=== PATIENT | male | born 1950 | race Caucasian/White ===

== ENCOUNTER 2020-02-07 05:19 | Day surgery (SDC) | payer MEDICARE, OTHER ==
[2020-02-03 11:38] LABS: BASOPHILS % (AUTO) 0.5 % (0-1); EOSINOPHILS # (AUTO) 0.2 X10'3 (0-0.9); EOSINOPHILS % (AUTO) 2.6 % (0-6); LYMPHOCYTES # (AUTO) 1.1 X10'3 (1.1-4.8); LYMPHOCYTES % (AUTO) 12.7 % (21-51); MEAN CORPUSCULAR HEMOGLOBIN 31.4 PG (27.0-31.0); MEAN CORPUSCULAR HGB CONC 35.1 g/dL (33.0-36.5); MEAN CORPUSCULAR VOLUME 89.3 FL (78-98); MEAN PLATELET VOLUME 8.6 FL (7.4-10.4); MONOCYTES # (AUTO) 0.8 X10'3 (0-0.9); MONOCYTES % (AUTO) 9.7 % (2-12); NEUTROPHILS # (AUTO) 6.4 X10'3 (1.8-7.7); NEUTROPHILS % (AUTO) 74.5 % (42-75); PRE OP HEMATOCRIT 42.5 % (42.0-52.0); PRE OP HEMOGLOBIN 14.9 g/dL (14.0-17.9); PRE OP PLATELET COUNT 179 X10'3 (140-440); RED BLOOD COUNT 4.76 X10'6 (4.70-6.10); RED CELL DISTRIBUTION WIDTH 13.7 % (11.5-14.5)
[2020-02-03 11:52] LABS: ALBUMIN 4.1 G/DL (3.4-5.0); ALBUMIN/GLOBULIN RATIO 1.3 (1.1-1.5); ALKALINE PHOSPHATASE 95 IU/L (46-116); BLOOD UREA NITROGEN 20 MG/DL (7-18); BUN/CREATININE RATIO 19.2 (5.4-32.0); CALCIUM 9.3 MG/DL (8.5-10.1); CHLORIDE 104 MMOL/L (99-107); CREATININE 1.04 MG/DL (0.60-1.10); PRE OP ALT 49 U/L (30-65); PRE OP ANION GAP 8 (8-16); PRE OP AST 21 U/L (10-37); PRE OP GLUCOSE 116 MG/DL (70-104); PRE OP POTASSIUM 4.2 MMOL/L (3.4-5.1); PRE OP SODIUM 138 MMOL/L (135-145); TOTAL CARBON DIOXIDE 26.2 MMOL/L (24-32); TOTAL PROTEIN 7.2 G/DL (6.4-8.2); eGFR 70 ML/MIN
[~2020-02-07] VITALS: Ht 188 cm; Wt 95.8 kg
[2020-02-07] VITALS (8 sets, daily range): BP systolic 118–151; BP diastolic 51–89
[~2020-02-07 05:19] MED LIST: ATEN25TA PO; ATOR10TA70 PO; HYDR25TA4 PO; LISI10TA4 PO; LORA-660 PO; METF-436 PO; METF500T20 PO; OXYM30SP26 BOTHNARES; PANT40TA4 PO; ringers solution, lacted 1,000 ML IV SCH
[2020-02-07] MEDS ORDERED: INDOCYANINE GREEN 25 MG/10 ML VIAL IV ONE ×2 (05:20→05:30)
[2020-02-07] MEDS ORDERED: DOCUMENT DATE & TIME OF BETA-BLOCKER PO ONE (05:30)
[2020-02-07] MEDS ORDERED: albuterol 2.5 MG/3 ML nebule NEB ONE (05:30)
[2020-02-07] MEDS ORDERED: famotidine 20mg tablet PO ONE (05:30)
[2020-02-07] MEDS ORDERED: LIDOcaine 1% (10mg/ml) 2ml vial ONE (05:53)
[2020-02-07] MEDS ORDERED: LIDOcaine 1% 30ml preserv. free vial ONE (06:44)
[2020-02-07] MEDS ORDERED: BUPIVAcaine/PF 2.5 mg/ml (0.25%) 30ml vial ONE (06:45)
[2020-02-07] MEDS ORDERED: cefazolin/dext.iso 2gm/50ml 50 ML IV ONE (06:45)
[2020-02-07] MEDS ORDERED: cefazolin/dext.iso 2gm/100ml 100 ML IV ONE (06:50)
[2020-02-07] MEDS ORDERED: ringers solution, lacted 1,000 ML IV SCH (07:13)
[2020-02-07] MEDS ORDERED: morphine 2 MG/ML inj. syringe IV PRN (07:15)
[2020-02-07] MEDS ORDERED: fentaNYL/PF 50MCG/1 ML 2ML syringe IV PRN ×2 (07:15)
[2020-02-07] MEDS ORDERED: morphine 4 MG/ML inj SYRINge IV PRN (07:15)
[2020-02-07] MEDS ORDERED: hydrALAZINE 20mg/ml inj. IV PRN (07:15)
[2020-02-07] MEDS ORDERED: ondansetron/PF 4mg/2ml inj IV PRN (07:15)
[2020-02-07] MEDS ORDERED: labetalol 20mg/4ml (5mg/ml) syringe IV PRN (07:15)
[2020-02-07] MEDS ORDERED: fentaNYL/PF 50MCG/1 ML 2ML syringe ONE (07:22)
[2020-02-07] MEDS ORDERED: midazolam 2 mg/2 ml injection ONE (07:22)
[2020-02-07] MEDS ORDERED: propofol inj 20 ML IV ONE (07:30)
[2020-02-07] MEDS ORDERED: rocuronium 10mg/ml inj IV ONE ×2 (07:30→08:27)
[2020-02-07] MEDS ORDERED: LIDOcaine 2% (20mg/ml) 5ml vial ONE (07:30)
[2020-02-07] MEDS ORDERED: ondansetron/PF 4mg/2ml inj ONE (07:31)
[2020-02-07] MEDS ORDERED: dexamethasone sod phosphate 4mg/ml inj. ONE (07:31)
[2020-02-07] MEDS ORDERED: glycopyrrolate 0.2mg/ml inj ONE (07:39)
[2020-02-07] MEDS ORDERED: neostigmine methylsulfate 1 MG/ML 10ml vial ONE (08:29)
--- NOTE | 2020-02-07 08:52 | NUR ---
Received from OR via [facility], accompanied by Anesthesiologist DR BURDEN and report given by Anesthesiolgist. AWAKE. VSS. ABD SOFT AND ROUNDED-AT PRE-OP LEVER PER DR MATA. ABD BANDAIDS CDI. MAEW. IV PATENT #20 LEFT HAND WITH LR 1OOMLS/HR. C/O MOD ABD PAIN UPON ARRIVE, MEDICATED IV-SEE eMAR.
[2020-02-07] MEDS ORDERED: HYDROcodone/acetaminophen 5mg/325mg tablet PO PRN (08:55)
[2020-02-07] MEDS ORDERED: HYDROcodone/acetaminophen 10/325mg tab PO PRN (08:55)
--- NOTE | 2020-02-07 09:52 | NUR ---
VSS. STATES ADEQUATE PAIN RELIEF. ABD DSG CDI. ABD ROUNDED, PT AND STATE THAT IS HIS NORMAL SHAPE. VANESSA PO WELL. DC INSTRUCTIONS REVIEWED WITH PT AND WHO VERBALIZED UNDERSTANDING. DC VIA WC TO PVT AUTO WITH PRESENT Addendum: 02/07/20 at 1010 by Abigail Sears RN Amended: Links added.
== END 2020-02-07 09:52 | disposition home or self-care (01) ==
LOC: PAS 05:19
PROVIDERS: ATTEND Surgery
DX: K80.10 Calculus of gallbladder with chronic cholecystitis without obstruction (principal); I10 Essential (primary) hypertension; E11.9 Type 2 diabetes mellitus without complications; E78.5 Hyperlipidemia, unspecified; E66.9 Obesity, unspecified; Z68.27 Body mass index [BMI] 27.0-27.9, adult; Z87.891 Personal history of nicotine dependence; Z98.890 Other specified postprocedural states; Z79.899 Other long term (current) drug therapy; Z79.84 Long term (current) use of oral hypoglycemic drugs
CPT/HCPCS: 36415; 47563; 80053; 82948; 85025; J1100; J2001; J2250; J2270; J2405; J2704; J2710; J3010; J3490; J7120; A4215; A4618; A7000

== ENCOUNTER 2021-06-27 15:45 | Emergency (ER) | payer MEDICARE, OTHER ==
[~2021-06-27] VITALS: Ht 188 cm; Wt 93.3 kg
[~2021-06-27 15:45] MED LIST changes: +LISI10TA27 PO; -LISI10TA4 PO; +LORA-657 PO; -LORA-660 PO; +METF-900 PO; -METF500T20 PO; -PANT40TA4 PO; +PANT40TA54 PO; -ringers solution, lacted 1,000 ML IV SCH
[2021-06-27 19:29] VITALS: BP 121/81
[2021-06-27 20:28] LABS: CLARITY,URINE CLEAR (Clear); COLOR,URINE YELLOW (Yellow); GLUCOSE, URINE NEGATIVE (Neg); KETONES,URINE NEGATIVE (Neg); LEUKOCYTE ESTERASE ,URINE NEGATIVE (Neg); NITRITES, URINE NEGATIVE (Neg); OCCULT BLOOD,URINE NEGATIVE (Neg); PROTEIN,URINE NEGATIVE (Neg); UROBILINOGEN,URINE 0.2 E.U/dL (0.2-1.0)
[2021-06-27 20:32] LABS: UA COLLECTION TYPE CLN CATCH MIDSTREAM
[2021-06-27] MEDS ORDERED: ondansetron 4mg rapidly disintigrating tab PO ONE (21:00)
[2021-06-27] MEDS ORDERED: HYDROcodone/acetaminophen 5mg/325mg tablet PO ONE (21:00)
[2021-06-27] MEDS ORDERED: acetaminophen 325mg tablet PO ONE (21:00)
[2021-06-27 21:12] LABS: BASOPHILS # (AUTO) 0.1 X10'3 (0-0.2); BASOPHILS % (AUTO) 1.4 % (0-1); EOSINOPHILS # (AUTO) 0.2 X10'3 (0-0.9); EOSINOPHILS % (AUTO) 2.1 % (0-6); HEMATOCRIT 43.1 % (42.0-52.0); HEMOGLOBIN 15.1 g/dl (14.0-17.9); LYMPHOCYTES # (AUTO) 1.6 X10'3 (1.1-4.8); LYMPHOCYTES % (AUTO) 19.4 % (21-51); MEAN CORPUSCULAR HEMOGLOBIN 31.3 PG (27.0-31.0); MEAN CORPUSCULAR HGB CONC 35.1 g/dL (33.0-36.5); MEAN CORPUSCULAR VOLUME 89.1 FL (78-98); MEAN PLATELET VOLUME 7.8 FL (7.4-10.4); MONOCYTES # (AUTO) 0.9 X10'3 (0-0.9); MONOCYTES % (AUTO) 11.2 % (2-12); NEUTROPHILS # (AUTO) 5.6 X10'3 (1.8-7.7); NEUTROPHILS % (AUTO) 65.9 % (42-75); PLATELET COUNT 287 X10'3 (140-440); RED BLOOD COUNT 4.84 X10'6 (4.70-6.10); RED CELL DISTRIBUTION WIDTH 14.4 % (11.5-14.5); WHITE BLOOD COUNT 8.5 X10'3 (4.5-11.0)
[2021-06-27 21:25] LABS: ALANINE AMINOTRANSFERASE 48 U/L (12-78); ALBUMIN 4.3 G/DL (3.4-5.0); ALBUMIN/GLOBULIN RATIO 1.3 (1.1-1.5); ALKALINE PHOSPHATASE 94 IU/L (46-116); ANION GAP 8 (8-16); ASPARTATE AMINO TRANSFERASE 16 U/L (10-37); BILIRUBIN,TOTAL 0.7 MG/DL (0.1-1.0); BLOOD UREA NITROGEN 31 MG/DL (7-18); BUN/CREATININE RATIO 30.1 (5.4-32.0); CALCIUM 9.9 MG/DL (8.5-10.1); CHLORIDE 103 MMOL/L (99-107); CREATININE 1.03 MG/DL (0.60-1.10); GLUCOSE 109 MG/DL (70-104); POTASSIUM 4.2 MMOL/L (3.5-5.1); SODIUM 141 MMOL/L (135-145); TOTAL CARBON DIOXIDE 29.7 MMOL/L (24-32); TOTAL PROTEIN 7.5 G/DL (6.4-8.2); eGFR 71 ML/MIN
[2021-06-27] MEDS ORDERED: ONDA4TAB6 PO (21:45)
[2021-06-27] MEDS ORDERED: FLO0.4C PO (21:45)
[2021-06-27] MEDS ORDERED: HYDR-3965 PO (21:45)
== END 2021-06-27 22:17 | disposition home or self-care (01) ==
LOC: ER 15:46
DX: N20.9 Urinary calculus, unspecified (principal); I10 Essential (primary) hypertension; Z79.899 Other long term (current) drug therapy; Z79.84 Long term (current) use of oral hypoglycemic drugs
CPT/HCPCS: 36415; 74176; 80053; 81003; 85025; 99284